=== PATIENT | female | born 1985 | race Caucasian/White ===

== ENCOUNTER 2022-02-13 09:05 | Emergency (ER) | payer BC, SELFPAY ==
--- NOTE | ~2022-02-13 | US_ITS ---
EXAMINATION: US pelvic complete w TV DATE: 02/13/2022 11:13 INDICATION: Vaginal bleeding. Lower abdominal pain. TECHNIQUE: Multiple transabdominal and endovaginal sonographic images of the pelvis were obtained. COMPARISON: None. FINDINGS: The uterus measures 8.5 x 4.8 x 5.9 cm. The endometrial complex measures 10 mm in thickness. The rig ht ovary measures 3.7 x 1.8 x 1.8 cm. The left ovary measures 2.3 x 1.0 x 1.0 cm. 1.8 cm anechoic cys t in the right ovary. There is normal vascular flow in the ovaries. There is a small amount of likely physiologic anechoic free fluid in the cul-de-sac. IMPRESSION: 1. Normal pelvic ultrasound with 1.8 cm cyst/follicle in the right ovary and small amount of likely p hysiologic free fluid in the cul-de-sac. Reviewed, dictated and finalized at location L. [employer]PERATOR TOOL IMPRESSION: 1. Normal pelvic ultrasound with 1.8 cm cyst/follicle in the right ovary and sm all amount of likely physiologic free fluid in the cul-de-sac.
[2022-02-13 09:08] VITALS: BP 118/88; PULSE 102; RESP 18; TEMP 36.8; O2SAT 98
--- NOTE | 2022-02-13 10:16 | ED.GENADULT ---
HPI - General Adult General Chief complaint: Vaginal Bleeding Stated complaint: vag bleeding Time Seen by Provider: 02/13/22 09:49 Source: patient Mode of arrival: ambulatory Limitations: no limitations History of Present Illness HPI narrative: Patient is a 36 y/o female who presents to the ED with c/o vaginal bleeding. Patient reports she developed bright red vaginal bleeding this morning. She had her last menstrual period 01/25 through 01/28, which was normal in quantity and length. She states bleeding was heavy at first, but has slowed slightly. She complains of some lower abdominal and lower back cramping. She is concerned she may have a ruptured ovarian cyst. She does have a history of ovarian cysts. She also has history of tubal ligation in 2019. Denies any current nausea, vomiting, diarrhea, constipation, fever. Patient sees Dr. Genao with [employer]. Related Data Home Medications Medication Instructions Recorded Confirmed multivitamin (Daily Multi-Vitamin 1 tablet PO DAILY 01/10/20 tablet) omega-3 fatty acids 1,000 mg 1,000 mg PO DAILY 01/10/20 capsule (Fish Oil Concentrate) Allergies Allergy/AdvReac Type Severity Reaction Status Date / Time morphine Allergy Unknown Skin Verified 10/01/20 16:36 Reaction Penicillins Allergy Unknown Skin Verified 10/01/20 16:36 Reaction Review of Systems Review of Systems: CONSTITUTIONAL: Denies fever, chills, or sweats. CARDIOVASCULAR: Denies chest pain. RESPIRATORY: Denies dyspnea. GASTROINTESTINAL: Reports lower abdominal cramping. Denies nausea, vomiting, or diarrhea. GENITOURINARY: Reports vaginal bleeding. Denies dysuria or hematuria. MUSCULOSKELETAL: Reports lower back cramping. All systems reviewed & are unremarkable except as noted in HPI and below PMFSH Past Medical History Medical History History of ovarian cyst Surgical History Surgical History History of History of repair of ACL History of tubal ligation Status post abdominoplasty Family History Family History Father Hypertension Social History Social History Smoking status: Never smoker Alcohol intake: current Exam Narrative: GENERAL: Well appearing, well-nourished, non-toxic, in no acute distress. HEAD: Normocephalic, atraumatic. NECK: Supple. No adenopathy, no masses. RESPIRATORY: Airway patent, respirations nonlabored. Clear to auscultation bilaterally, no rales, rhonchi, wheezing. CARDIOVASCULAR: Regular rate and rhythm without murmurs, rubs, or gallops. Peripheral pulses 2+ and equal bilaterally. ABDOMINAL: Soft, mild tenderness in lower abdomen/pelvic region bilaterally. Nondistended, no hepatosplenomegaly. Normoactive BS. PELVIC: Normal external genitalia. Moderate amount of dark red vaginal bleeding present in vaginal vault. No signs of hemorrhage or pooling of fluid. Able to easily clear blood with long Q-tips. Normal-appearing cervix. No significant CMT. MUSCULOSKELETAL: Moves all extremities. Strength/ROM intact without gross deformities. SKIN: Warm, dry, normal color. No rashes. NEURO: A&O X3. Speech clear. Cranial nerves II-XII grossly intact. Steady gait. No ataxic movements. PSYCHIATRIC: Appropriate mood and affect. Normal interaction. Course Consultations Consultation #1: Discussed case with Dr. Genao OBGYDeandra, advised likely early or abnormal cycle. No further recommendations. Will f/u in office if needed. Date: 02/13/22 Vital Signs Vital signs: Vital Signs Temperature 98.3 F 02/13/22 09:08 Pulse Rate 102 H 02/13/22 09:08 Respiratory Rate 18 02/13/22 09:08 Blood Pressure 118/88 02/13/22 09:08 Pulse Oximetry 98 02/13/22 09:08 Oxygen Delivery Room Air 02/13/22 09:08 Temperatur
[2022-02-13 11:33] LABS: Basophils Percent Auto 0.3 % (0.2-1.2); Eosinophils Percent Auto 0.3 % (0-4.4); Hematocrit 39.5 % (37.0-47.0); Hemoglobin 13.2 g/dL (12.0-15.0); Immature Granulocyte Absolute 0.01 K/mm3 (0.00-0.031); Immature Granulocyte Percent A 0.3 % (0-0.5); Lymphocytes Absolute Auto 0.77 K/mm3 (0.9-3.2); Lymphocytes Percent Auto 23.3 % (18.3-44.2); Mean Corpuscular HGB Conc 33.4 g/dl (32-36); Mean Corpuscular Hemoglobin 29.9 pg (26-34); Mean Corpuscular Volume 89.6 fl (80-100); Mean Platelet Volume 10.7 fl (7.4-10.4); Monocytes Absolute Auto 0.4 K/mm3 (0.1-0.6); Monocytes Percent Auto 10.6 % (2.6-8.5); Neutrophils Absolute Auto 2.2 K/mm3 (1.3-6.7); Neutrophils Percent Auto 65.2 % (45.5-73.1); Platelet Count Result 145 k/mm3 (150-375); Red Blood Count 4.41 M/mm3 (4.2-5.4); White Blood Count 3.3 K/mm3 (4.5-10.0)
[2022-02-13 11:44] LABS: Alanine Aminotransferase 13 U/L (6-35); Albumin Level 4.2 g/dL (3.5-5.1); Alkaline Phosphatase 44 U/L (38-126); Anion Gap 7 mmol/L (8-16); Aspartate Amino Transferase 24 U/L (14-36); Bilirubin,Total 0.2 mg/dL (0.2-1.3); Blood Urea Nitrogen 9 mg/dL (7-17); Calcium 8.1 mg/dL (8.4-10.2); Carbon Dioxide 24 mmol/L (22-30); Chloride 103 mmol/L (98-107); Estimated CRCL calculation 70 ml/min; Estimated Glomerular Filt Rate > 60; Glucose 86 mg/dL (65-110); Potassium 3.4 mmol/L (3.4-5.0); Sodium 134 mmol/L (137-145)
[2022-02-13 12:25] LABS: Add Urine Microscopic? YES; Appearance Urine Clear (Clear); Bilirubin Urine Negative (Negative); Blood Urine 3+ (Negative); Color Urine Yellow (Yellow); Glucose Urine UA Negative (Negative); Ketones Urine 1+ mg/dL (Negative); Leukocyte Esterase Ur Negative LEU/UL (Negative); Nitrate Urine Negative (Negative); Protein Urine Trace mg/dL (Negative); Specific Grav Ur 1.025 (1.001-1.035); Urobilinogen Urine 0.2 mg/dL (<2.0)
[2022-02-13 12:38] LABS: Mucus Urine Rare /lpf; RBC Urine >75 /hpf (0-2); Squamous Epithelial Cell Urine Occasional /hpf (Few)
[2022-02-13 13:03] VITALS: BP 109/76; PULSE 86; RESP 18; O2SAT 100
== END 2022-02-13 13:04 | disposition home or self-care (01) ==
PROVIDERS: Emergency Provider Physician Assistant; PCP Family Medicine
DX: N93.8 Other specified abnormal uterine and vaginal bleeding (principal); N83.201 Unspecified ovarian cyst, right side
CPT/HCPCS: 36415; 76830; 76856; 80053; 81001; 81025; 85025; 87086; 99284

== ENCOUNTER → 2022-03-20 09:00 | Outpatient (CLI) | payer BC, SELFPAY ==
--- NOTE | ~2022-03-20 | MR_ITS ---
EXAMINATION: MR brain/brain stem wo/w con DATE: 03/20/2022 09:49 INDICATION: Hyperprolactinemia. Headache and dizziness. TECHNIQUE: Magnetic resonance imaging (MRI) of the brain and brainstem was performed without and with 12 mL MultiHance intravenous contrast. COMPARISON: None. FINDINGS: The pituitary is normal in size with height of 5 mm and concave superior margin. There is n o intracranial hemorrhage, acute infarction, or abnormal intracranial mass lesion. The ventricles are normal in size. There is mild mucosal thickening in left maxillary sinus. The orbits are normal. The mastoid air cells are normal. IMPRESSION: 1. Normal pituitary. Normal brain. Reviewed, dictated and finalized at location A. END ENGINEER
== END ==
PROVIDERS: PCP Family Medicine; Visit Provider Family Medicine
DX: R42 Dizziness and giddiness (principal); R51.9 Headache, unspecified; R79.89 Other specified abnormal findings of blood chemistry
CPT/HCPCS: 70553; A9577

== ENCOUNTER 2023-12-17 12:03 | Outpatient (CLI) | payer OTHER, SELFPAY ==
--- NOTE | ~2023-12-17 | US_ITS ---
EXAMINATION: US thyroid DATE: 12/17/2023 12:14 INDICATION: Abnormal thyroid labs. Thyroid globulin antibody positive. TECHNIQUE: Multiple ultrasound images of the thyroid were obtained. COMPARISON: None. FINDINGS: The right thyroid lobe measures 5.0 x 1.4 x 1.5 cm. The left thyroid lobe measures 4.7 x 1.1 x 1.6 c m. No discrete nodules identified. There is normal echotexture, echogenicity and vascular flow throu ghout the thyroid gland. IMPRESSION: 1. Normal thyroid ultrasound. Reviewed, dictated and finalized at location A.
== END 2023-12-17 12:04 | disposition home or self-care (01) ==
LOC: MICIMG 12:03
PROVIDERS: PCP Family Medicine; Visit Provider Family Medicine
DX: R76.8 Other specified abnormal immunological findings in serum (principal); R53.83 Other fatigue; R63.5 Abnormal weight gain; R79.89 Other specified abnormal findings of blood chemistry
CPT/HCPCS: 76536